=== PATIENT | male | born 1990 | race Caucasian/White ===

== ENCOUNTER 2016-08-12 14:06 | Day surgery (SDC) | payer OTHER ==
[2016-08-12] MEDS ORDERED: Glucagon,Human Recombinant 1 MG Vial IV ONE (14:30)
[2016-08-12] MEDS ORDERED: Sodium Chloride 0.9% 1,000 ML IV STA (14:32)
--- NOTE | 2016-08-12 14:45 | EDM.PDOC ---
[id number]: CHOKED AT LUNCH Time Seen by Provider: 08/12/16 14:06 Source: Reports: Patient History Limitations: Reports: No limitations - History of Present Illness INITIAL COMMENTS - FREE TEXT/NARRATIVE: 25 years old w f came to the ed by PC 3 hours after he ate chicken wings and felt something is "stuck" in his throat. Pt is not able to swallow the saliva and is constantly spitting up his saliva. Pt is otherwise in healthy condition. Symptom Onset Date: 08/12/16 Symptom Onset Time: 11:00 Timing/Duration: Reports: Hour(s):, Intermittent Location: other (esophageal) Quality: Reports: cramping, fullness Severity: moderate Improves with: Reports: sitting up Worsens with: Reports: lying down Context: Reports: bad/questionable food (ate chicken wings) Associated Symptoms: Reports: other (dysphagia) - Related Data Allergies/ADRs: Allergies Allergy/AdvReac Type Severity Reaction Status Date / Time banana Allergy Other Verified 08/12/16 15:53 carrot Allergy Swelling Verified 08/12/16 14:23 cefaclor [From Ceclor] Allergy Other Verified 08/12/16 15:54 cantalope Allergy Swelling Uncoded 08/12/16 14:23 Home Meds: Home Meds Gabapentin [Neurontin] 300 mg PO BID 08/12/16 [History] ED ROS GENERAL - Review of Systems Review Of Systems: See Below Constitutional: Reports: no symptoms HEENT: Reports: Other (dysphagia) Respiratory: Reports: No Symptoms Cardiovascular: Reports: No symptoms Endocrine: Reports: no symptoms GI/Abdominal: Reports: Difficulty swallowing : Reports: no symptoms Musculoskeletal: Reports: no symptoms Skin: Reports: no symptoms Neurological: Reports: No Symptoms Psychiatric: Reports: No symptoms Hematologic/Lymphatic: Reports: no symptoms Immunologic: Reports: no symptoms ED EXAM, GI/ABD - Physical Exam Exam: See Below Exam Limited By: No limitations General Appearance: alert, WD/WN, moderate distress Eyes: bilateral: normal appearance Ears: normal external exam Nose: normal inspection, normal mucosa, no blood Throat/Mouth: Normal inspection, Normal lips, Normal teeth, Normal gums, Normal oropharynx, Normal voice, No airway compromise Head: atraumatic, normocephalic Neck: normal inspection, supple, non-tender, full range of motion Respiratory/Chest: no respiratory distress, lungs clear, normal breath sounds, no accessory muscle use, chest non-tender Cardiovascular: normal peripheral pulses, regular rate, rhythm, no edema, no gallop, no JVD, no murmur, no rub GI/Abdominal: normal bowel sounds, soft, non tender, no organomegaly, no distention, no abnormal bruit (Male) Exam: Deferred Rectal (Males) Exam: Deferred Back Exam: normal inspection, full range of motion Extremities: normal inspection, normal range of motion Neurological: alert, oriented, CN II-XII intact, normal cognition, normal gait Psychiatric: normal affect, normal mood Skin Exam: Warm, Dry, Intact, Normal color, No rash Lymphatic: no adenopathy Course - Vital Signs Text/Narrative:: 25 years old w f came to the ed by PC 3 hours after he ate chicken wings and felt something is "stuck" in his throat. Pt is not able to swallow the saliva and is constantly spitting up his saliva. Pt is otherwise in healthy condition. Initially, pt presented with a "scratch" in his throat after eating chicken. PE: Dysphasia Imaging: Soft tissue lat neck: NAD Impression: Food bolus obstruction Tx: Glucagon 1 mg i.v., NS Reexam: No improvement Consultation: Dr. Bustamante was informed by the nurse at 2.39 pm. Last Recorded V/S: Last Vital Signs Temp 36.6 C 08/12/16 16:00 Pulse 77 08/12/16 17:45 Resp 16 08/12/16 17:45 BP 111/59 L 08/12/16 17:45 Pulse Ox 100 08/12/16 17:45 - Orders/Labs/Meds Meds: Medications Discontinued Medications Generic Name Dose Route Start Last Admin Trade Name Eveline PRN Reason Stop Dose Admin Glucagon 1 mg 08/12/16 14:30 08/12/16 14:45 Glucagen IV 08/12/16 14:31 1 mg ONETIME ONE Administration Sodium Chloride 1,000 mls @ 125 mls/hr 08/12/16 14:32 08/12/16 14:45 Normal Saline IV 08/12/16 22:31 125 mls/hr ASDIRECTED STA Administration Departure - Departure Time of Disposition: 15:00 Disposition: Refer to Observation Condition: fair Clinical Impression: Food impaction of esophagus Qualifiers: Encounter type: initial encounter Qualified Code(s): T18.128A - Food in esophagus causing other injury, initial encounter
--- NOTE | 2016-08-12 15:16 | PCM.SN ---
- Free Text/Narrative Note: food impaction see dictated H+P for preop plan egd.
--- NOTE | 2016-08-12 15:43 | PREOP ---
ADMISSION DATE: 08/12/2016 CHIEF COMPLAINT: Food impaction. HISTORY OF PRESENT ILLNESS: This is a 25-year-old white male who came into the emergency room approximately 3 hours after he ate lunch. This was apparently at the welcome where he had a grilled chicken sandwich, felt something got stuck in his throat, was able to bring up part of it, but subsequent to this has been unable to swallow or handle his saliva. He notes some discomfort in his throat as well. On presentation to the emergency room, glucagon was tried with no relief. His apparently workup to date has been essentially unremarkable. SOCIAL HISTORY: The patient works as a physical therapist. Does not smoke. Does not drink. HOME MEDICATIONS: Include gabapentin 300 mg p.o. b.i.d. for pain in toes and hands. PAST MEDICAL HISTORY: Essentially unremarkable except for the pain issue. PAST SURGICAL HISTORY: He notes several orthopedic procedures in the past for sports injuries. ALLERGIES: He reports an allergy to cantaloupe and to carrots. FAMILY HISTORY: He has no bearing on this exam. REVIEW OF SYSTEMS: CONSTITUTIONAL: Negative. HEAD, EARS, EYES, NOSE: Unremarkable. THROAT: Remarkable for some dysphagia. RESPIRATORY: Negative. CARDIOVASCULAR: Negative. ABDOMEN: No abdominal issues, nausea, vomiting, diarrhea, black or bloody stools. SKIN: Negative. NEUROLOGIC: Negative. PHYSICAL EXAMINATION: GENERAL: This is a well-developed well-nourished white male, appearing in mild to moderate distress. VITAL SIGNS: Temperature is 36.6 with a pulse rate of 58, respiratory rate of 18, blood pressure is 102/52, and pulse ox 99% on room air. HEENT: Reveals to be normocephalic and atraumatic. Pupils are equal and reactive bilaterally. Oropharynx clear. He does repeatedly spit up saliva. LUNGS: Clear to auscultation. HEART: Regular rate and rhythm. ABDOMEN: Soft and nontender. ASSESSMENT: Food impaction. PLAN: EGD with removal of impacted food. Risks of procedure were explained to the patient, to include bleeding, infection, and perforation. He expresses understanding and he asked us to proceed. /[id number] /MODL
--- NOTE | 2016-08-12 15:55 | CR ---
INDICATION: Dysphagia, swallowed chicken one half hour ago. NECK, SOFT TISSUE: Two lateral views of the neck were obtained for soft tissue and revealed the airway to be patent. Prevertebral space appeared to be normal. There is some slight narrowing of the disk space at C6-7 with mild hypertrophic changes anteriorly off vertebral bodies with slight reversal of normal cervical lordosis at C5-6. Bone density appeared to be normal. IMPRESSION: No definite foreign body could be identified. If symptoms persist, additional examination could be obtained with barium soaked cotton ball to evaluate the possibility of obstructing process in the esophagus. MTDD
[2016-08-12] MEDS ORDERED: Ketamine 500 mg/10 ML MDV IV ONE (16:30)
[2016-08-12] MEDS ORDERED: Lidocaine 2% 100 MG/5 ML Syringe IVPUSH ONE (16:30)
[2016-08-12] MEDS ORDERED: Midazolam 1 MG/ML 2 ML SDV IV ONE (16:30)
--- NOTE | 2016-08-12 17:35 | PCM.OPNOTE ---
- General Post-Op/Procedure Note Date of Surgery/Procedure: 08/12/16 Operative Procedure(s): egd with bx Findings: impacted food in esophagus gastritis Pre Op Diagnosis: food impaction Post-Op Diagnosis: food impaction. gastritis Anesthesia Technique: MAC Primary Surgeon: Johnathan Bustamante Anesthesia Provider: Lance Henao Pathology: stomach Complications: None Condition: Good Free Text/Narrative:: see dictation
[2016-08-12 18:21] VITALS: BP 111/59
--- NOTE | 2016-08-12 23:31 | OR ---
DATE OF OPERATION: 08/12/2016 SURGEON: Johnathan Bustamante MD PROCEDURE PERFORMED: Esophagogastroduodenoscopy with biopsy. PREOPERATIVE DIAGNOSIS: Food impaction. POSTOPERATIVE DIAGNOSIS: Food impaction and gastritis. INDICATIONS FOR PROCEDURE: This is a 25-year-old, white male, who was eating earlier today at a local restaurant and apparently got portion of a chicken sandwich caught in his throat. He was unable to pass it and has difficulty handling his secretions. He was offered and accepted upper endoscopy. DESCRIPTION OF OPERATION: After an excellent IV sedation was administered, the bite block was inserted. The patient was placed in left lateral position. The flexible scope was passed without difficulty down the esophagus what appeared to be impacted with chicken as well as sweet potato moore was encountered. The Mejia Net was passed and we attempted to grasp the food, we were unable to grasp the food and in repositioning our, the food spontaneously advanced into the stomach. The scope was advanced into the stomach and then through the pylorus to the second portion of the duodenum and slowly withdrawn. The following findings were noted, the duodenum was unremarkable. The stomach demonstrated some gastritis, several biopsies were taken and on retroflexing the scope, there was no evidence of hiatal hernia. GE junction measured at 40 cm and the esophagus itself was unremarkable. No stricture esophagitis as noted. The stomach was deflated, scope was removed. The patient tolerated the procedure well and was taken to recovery room in good condition. /[id number] /MODL
== END 2016-08-12 17:52 | disposition home or self-care (01) ==
LOC: FB.ED 14:06 → FB.SDS 14:07 → FB.MS 15:24 → FB.SDS 17:52
PROVIDERS: ATTEND Surgery
PROC: 0DB68ZX Excision of Stomach, Via Natural or Artificial Opening Endoscopic, Diagnostic (ICD-10-PCS; principal; 2016-08-12)
DX: T18.128A Food in esophagus causing other injury, initial encounter (principal); X58.XXXA Exposure to other specified factors, initial encounter; Y92.511 Restaurant or cafe as the place of occurrence of the external cause; K29.70 Gastritis, unspecified, without bleeding; Z91.018 Allergy to other foods; Z88.8 Allergy status to other drugs, medicaments and biological substances; Z79.899 Other long term (current) drug therapy
CPT/HCPCS: 00740; 43239; 70360; 88305; 88342; 96361; 96374; 99284; J1610; J2250; J7040